=== PATIENT | female | born 1985 | race Caucasian/White ===

== ENCOUNTER → 2017-01-31 | Outpatient (CLI) | payer OTHER ==
[2017-01-31 09:25] LABS: BASO % 0.2 % (0.0-1.0); EOS % 0.7 % (0.0-3.0); LARGE UNSTAINED CELL # 0.2 K/mm3 (0.0-0.4); LARGE UNSTAINED CELL % 2.9 % (0.0-4.0); LYMPH # 1.3 K/mm3 (1.5-4.5); LYMPH % 18.1 % (24.0-44.0); MEAN CORPUSCULAR HGB CONC 35.4 g/dl (32.0-36.5); MEAN CORPUSCULAR VOLUME 87.8 fl (80.0-96.0); MONO # 0.3 K/mm3 (0.0-0.8); MONO % 3.7 % (0.0-5.0); NEUTROPHILS # 5.5 K/mm3 (1.8-7.7); NEUTROPHILS % 74.4 % (36.0-66.0); PLATELET COUNT, AUTOMATED 265 k/mm3 (150-450); RED CELL DISTRIBUTION WIDTH 13.3 % (11.5-14.5); WHITE BLOOD COUNT 7.4 K/mm3 (4.0-10.0)
[2017-02-01 08:09] LABS: CONTROL LINE INT CTR LINE PRESENT; HIV SCRN NEGATIVE (NEGATIVE); HIV SCRN1 NEGATIVE (NEGATIVE)
== END ==
LOC: M LAB 08:14
PROVIDERS: ATTEND Advanced Practice Midwife
DX: Z34.81 Encounter for supervision of other normal pregnancy, first trimester (principal); Z36 Encounter for antenatal screening of mother

== ENCOUNTER → 2017-02-02 | Outpatient (REF) | payer OTHER | LOC: M LAB REF 17:04 | PROVIDERS: ATTEND Advanced Practice Midwife | DX: Z34.81 Encounter for supervision of other normal pregnancy, first trimester (principal); Z36 Encounter for antenatal screening of mother ==

== ENCOUNTER → 2017-02-09 | Outpatient (CLI) | payer OTHER ==
--- NOTE | 2017-02-09 18:23 | REP ---
Clinical: Anatomical evaluation. Comparison: none. Findings: Examination demonstrates a single live intrauterine in cephalic presentation. motion is identified by technologist. Placenta is noted anteriorly and grade one without evidence for placenta previa or abruption. Amniotic fluid volume is normal. Cervix measures 4.5 cm in length and appears closed. Nuchal cord cannot be excluded. Gestational age by current measurements 26 weeks 2 days with MEI 05/16/2017 . FHR equals 130 beats per minute. BPD 6.7 cm 27 weeks 0 days HC 24.3 cm 26 weeks 3-day AC 21.8 cm 26 weeks 2 days FL 4.7 cm 25 weeks 5 days HL 4.4 cm 26 weeks 2 days HC/AC ratio 1.12 Estimated weight 892 grams ( 36 percentile). Anatomical assessment demonstrates normal structures including cranium, choroid plexus, cavum, cerebellum/posterior fossa, facial features, lungs, four-chamber heart/ left ventricular outflow tract, diaphragm, stomach, cord insertion/three-vessel cord, kidneys/bladder, spine, and lower extremities. Limited evaluation of the right cardiac ventricular outflow tract and upper extremities noted. Impression: Single live intrauterine in cephalic presentation. Anatomical limitations as noted above may warrant reevaluation and follow-up. Signed by Juan Chau MD 02/09/2017 06:14 P
== END ==
LOC: M RAD 17:11
PROVIDERS: ATTEND Advanced Practice Midwife
DX: Z36 Encounter for antenatal screening of mother (principal); Z3A.26 26 weeks gestation of pregnancy

== ENCOUNTER → 2017-03-02 | Outpatient (CLI) | payer OTHER ==
[2017-03-02 17:01] LABS: BASO % 0.2 % (0.0-1.0); EOS # 0.1 K/mm3 (0.0-0.50); EOS % 0.8 % (0.0-3.0); LARGE UNSTAINED CELL # 0.1 K/mm3 (0.0-0.4); LARGE UNSTAINED CELL % 1.1 % (0.0-4.0); LYMPH # 1.7 K/mm3 (1.5-4.5); LYMPH % 18.6 % (24.0-44.0); MEAN CORPUSCULAR HEMOGLOBIN 30.4 pg (27.0-33.0); MEAN CORPUSCULAR HGB CONC 33.8 g/dl (32.0-36.5); MEAN CORPUSCULAR VOLUME 90.1 fl (80.0-96.0); MONO # 0.3 K/mm3 (0.0-0.8); MONO % 3.5 % (0.0-5.0); NEUTROPHILS # 6.5 K/mm3 (1.8-7.7); NEUTROPHILS % 75.9 % (36.0-66.0); PLATELET COUNT, AUTOMATED 279 k/mm3 (150-450); RED CELL DISTRIBUTION WIDTH 13.7 % (11.5-14.5); WHITE BLOOD COUNT 8.6 K/mm3 (4.0-10.0)
== END ==
LOC: M LAB 15:02
PROVIDERS: ATTEND Advanced Practice Midwife
DX: Z34.83 Encounter for supervision of other normal pregnancy, third trimester (principal); Z36 Encounter for antenatal screening of mother

== ENCOUNTER → 2017-03-09 | Outpatient (CLI) | payer OTHER ==
--- NOTE | 2017-03-10 03:19 | REP ---
Clinical: Anatomical evaluation. Comparison: 02/09/2017 . Findings: Examination demonstrates a single live intrauterine in cephalic presentation. motion is identified by technologist. Placenta is noted anteriorly and grade zero without evidence for placenta previa or abruption. Amniotic fluid volume is normal. Cervix measures 4.2 cm in length and appears closed. No evidence for nuchal cord. Gestational age by first ultrasound 30 weeks 2 days with MEI 05/16/2017 . Gestational age by current measurements 30 weeks 1 day with MEI 05/17/2017 . FHR equals 133 beats per minute. Estimated weight 1521 grams ( 38th percentile). Anatomical assessment demonstrates normal structures including cranium, choroid plexus, cavum, cerebellum/posterior fossa, facial features, lungs, four-chamber heart/ventricular outflow tracts, diaphragm, stomach, three-vessel cord, bladder and upper extremities. Impression: Single live intrauterine in cephalic presentation demonstrating appropriate interval growth. In conjunction with prior examination anatomical assessment is complete and normal. Signed by Juan Chau MD 03/10/2017 03:10 A
== END ==
LOC: M RAD 16:43
PROVIDERS: ATTEND Advanced Practice Midwife
DX: Z34.83 Encounter for supervision of other normal pregnancy, third trimester (principal); Z36 Encounter for antenatal screening of mother; Z3A.30 30 weeks gestation of pregnancy

== ENCOUNTER → 2017-03-31 | Outpatient (CLI) | payer OTHER ==
[2017-03-31 19:22] LABS: MEAN CORPUSCULAR HEMOGLOBIN 30.7 pg (27.0-33.0); MEAN CORPUSCULAR HGB CONC 34.3 g/dl (32.0-36.5); MEAN CORPUSCULAR VOLUME 89.4 fl (80.0-96.0); RED CELL DISTRIBUTION WIDTH 13.7 % (11.5-14.5); WHITE BLOOD COUNT 9.9 K/mm3 (4.0-10.0)
[2017-03-31 20:27] LABS: ALT/SGPT 21 U/L (12-78); AST/SGOT 16 U/L (15-37); BILIRUBIN,TOTAL 0.5 MG/DL (0.2-1.0); CREATININE FOR GFR 0.43 MG/DL (0.55-1.02); GLOMERULAR FILTRATION RATE > 60.0 (>60); URIC ACID 4.2 MG/DL (2.6-6.0)
[2017-03-31 20:43] LABS: CREATININE, SERUM 0.4 MG/DL (0.6-1.0)
[2017-03-31 20:55] LABS: CREATININE CLEARANCE, URINE 182.3 ML/MIN (75-115)
== END ==
LOC: M LAB 18:23
PROVIDERS: ATTEND Advanced Practice Midwife
DX: O16.3 Unspecified maternal hypertension, third trimester (principal)

== ENCOUNTER → 2017-04-01 | Outpatient (CLI) | payer OTHER ==
--- NOTE | 2017-04-01 12:55 | REP ---
REASON FOR EXAM: Gestational hypertension. Obtain biophysical profile. Multiple sonographic images of the gravid uterus show a single living intrauterine gestation in variable positions. The subjective amniotic fluid volume is within normal limits. Doppler interrogation of the heart shows a heart rate of 136 beats per minute. Doppler interrogation of the umbilical artery shows an A/B ratio of 3.07. This is minimally above the upper limit of normal which is 3.00. The significance of that is questionable. Feta biophysical profile score is 2 for breathing, 2 for movement, 2 for tone, and 2 for amniotic fluid volume giving a sum total of 8 out of 8. The calculated amniotic fluid index is 15.8, within expected range 8.2 to 24.7. IMPRESSION: Limited OB ultrasound and biophysical profile, as described above. Signed by Teja Schafer DO 04/01/2017 02:16 P
== END ==
LOC: M RAD 09:10
PROVIDERS: ATTEND Advanced Practice Midwife
DX: O13.3 Gestational [pregnancy-induced] hypertension without significant proteinuria, third trimester (principal)

== ENCOUNTER → 2017-04-08 | Outpatient (CLI) | payer OTHER ==
--- NOTE | 2017-04-08 12:07 | REP ---
Clinical: Hypertension. Growth discrepancy . Comparison: 04/01/2017 . Findings: Examination demonstrates a single live intrauterine in cephalic presentation. motion is identified by technologist. Placenta is noted anteriorly and grade one without evidence for placenta previa or abruption. Amniotic fluid volume is normal. Cervix measures 4.5 cm in length and appears closed. Nuchal cord cannot be excluded. Gestational age by LMP 34 weeks 4 days with MEI 05/16/2017 . Gestational age by current measurements 34 weeks 0 days with MEI 05/20/2017 . FHR equals 162 beats per minute. BPD 8.5 cm 34 weeks 1 day HC 30.5 cm 34 weeks 0 days AC 30.0 cm 34 weeks 0 days FL 6.6 cm 33 weeks 5 days HL 5.9 cm 34 weeks 2 days HC/AC ratio 1.02 Estimated weight 2305 grams ( 35th percentile). Amniotic fluid index equals 23.6 cm (8.0 - 24.9). Biophysical profile score equals 8/8 Impression: 1. Single live advanced gestation in cephalic presentation demonstrating appropriate interval growth. 2. Nuchal cord cannot be excluded. 3. Biophysical profile score equals 8/8. 4. Amniotic fluid volume is upper limits of normal. Signed by Juan Chau MD 04/08/2017 11:59 A
== END ==
LOC: M RAD 10:59
PROVIDERS: ATTEND Advanced Practice Midwife
DX: O24.419 Gestational diabetes mellitus in pregnancy, unspecified control (principal)

== ENCOUNTER → 2017-04-15 | Outpatient (CLI) | payer OTHER ==
--- NOTE | 2017-04-15 11:51 | REP ---
LIMITED OBSTETRIC SONOGRAPHY: HISTORY: 35 weeks gestation. Gestational hypertension. FINDINGS: Scanning demonstrates a viable single intrauterine gestation in a cephalic lie. heart rate is recorder at 132 beats per minute. Closed cervical length measured transabdominally is 5.2 cm. Amniotic fluid is subjectively normal. An anterior placenta is seen grade 1 without evidence of previa or abruption. Biophysical profile score is 8 out of a possible 8. Amniotic fluid index is normal and 16.1 cm. The SD ratio in the umbilical cord artery by Doppler is normal at 2.79. Signed by Fidel Strickland MD 04/15/2017 02:10 P
== END ==
LOC: M RAD 10:47
PROVIDERS: ATTEND Advanced Practice Midwife
DX: O24.419 Gestational diabetes mellitus in pregnancy, unspecified control (principal)

== ENCOUNTER → 2017-04-22 | Outpatient (CLI) | payer OTHER ==
--- NOTE | 2017-04-22 21:20 | REP ---
Clinical: Gestational hypertension for biophysical profile. Comparison: 04/15/2017. Findings: Ultrasound examination demonstrates a single live advanced gestation in cephalic presentation. motion was identified by technologist. Placenta is noted anteriorly and grade 1 without evidence for placenta previa or abruption. Cervix measures 3.7 cm in length and appears closed. Gestational age by first ultrasound 36 weeks 4 days with MEI 05/16/2017. heart rate = 133 beats per minute. Amniotic fluid index= 16.7 cm (7.6 - 24.6). Biophysical profile score = 8/8. Umbilical cord SD ratio = 2.28 (1.76 - 2.76). Impression: Single live intrauterine in cephalic presentation. Biophysical profile score equals 8/8. Amniotic fluid index normal. Signed by Juan Chau MD 04/22/2017 09:12 P
== END ==
LOC: M RAD 10:58
PROVIDERS: ATTEND Advanced Practice Midwife
DX: O13.3 Gestational [pregnancy-induced] hypertension without significant proteinuria, third trimester (principal); Z3A.36 36 weeks gestation of pregnancy

== ENCOUNTER → 2017-04-29 | Outpatient (CLI) | payer OTHER ==
[~2017-04-29] MED LIST: COLA100C3 PO; IBUP800T23 PO; MOM30SS PO; OXYC1TAB23 PO; PERCOCET PO
--- NOTE | 2017-04-30 06:06 | REP ---
Clinical: well-being . Comparison: 04/22/2017 . Findings: Examination demonstrates a single live intrauterine in cephalic presentation. motion is identified by technologist. Placenta is noted anteriorly and grade II without evidence for placenta previa or abruption. Amniotic fluid volume is normal. Cervix measures 3.7 cm in length and appears closed. No evidence for nuchal cord. Gestational age by LMP 37 weeks 4 days with MEI 05/16/2017 . Gestational age by current measurements 37 weeks 2 days with MEI 05/18/2017 . FHR equals 133 beats per minute. Estimated weight 3155 grams ( 50th percentile). Biophysical profile score equals 8/8. Amniotic fluid index equals 11.7 cm (7.4 - 24.1). Umbilical cord SD ratio equals 2.44 Impression: 1. Single live advanced gestation in cephalic presentation demonstrating appropriate interval growth. 2. Biophysical profile score equals 8/8. 3. Estimated weight normal. 4. Amniotic fluid index normal. Signed by Juan Chau MD 04/30/2017 05:57 A
== END ==
LOC: M RAD 10:42
PROVIDERS: ATTEND Advanced Practice Midwife
DX: O13.9 Gestational [pregnancy-induced] hypertension without significant proteinuria, unspecified trimester (principal)

== ENCOUNTER 2017-05-01 06:28 | Inpatient (IN) | payer OTHER ==
[~2017-05-01] VITALS: Ht 165.1 cm; Wt 104.0 kg
[2017-05-01] VITALS (14 sets, daily range): BP systolic 108–150; BP diastolic 54–87
[2017-05-01] MEDS ORDERED: LACTATED RINGER'S 1000 ML IV STA (07:21)
[2017-05-01] MEDS ORDERED: LR 1,000 ML IV SCH (07:21)
[2017-05-01 08:02] LABS: MEAN CORPUSCULAR HEMOGLOBIN 30.4 pg (27.0-33.0); MEAN CORPUSCULAR HGB CONC 34.4 g/dl (32.0-36.5); MEAN CORPUSCULAR VOLUME 88.3 fl (80.0-96.0); RED CELL DISTRIBUTION WIDTH 14.2 % (11.5-14.5); WHITE BLOOD COUNT 8.2 K/mm3 (4.0-10.0)
[2017-05-01 08:17] LABS: ALT/SGPT 17 U/L (12-78); AST/SGOT 16 U/L (15-37); BILIRUBIN,TOTAL 0.4 MG/DL (0.2-1.0); CREATININE FOR GFR 0.36 MG/DL (0.55-1.02); GLOMERULAR FILTRATION RATE > 60.0 (>60); URIC ACID 4.7 MG/DL (2.6-6.0)
[2017-05-01] MEDS: miSOPROStol 50 MCG 1/2 TAB (S0191) PO SCH ×4 (08:40→20:49)
[2017-05-02] VITALS (33 sets, daily range): BP systolic 90–150; BP diastolic 53–80
[2017-05-02] MEDS: miSOPROStol 50 MCG 1/2 TAB (S0191) PO SCH (00:53)
[2017-05-02] MEDS ORDERED: miSOPROStol 100 MCG TAB (S0191) PO ONE ×2 (05:15→11:00)
[2017-05-02] MEDS ORDERED: LR 1,000 ML IV SCH (14:27)
[2017-05-02] MEDS ORDERED: OXYTOCIN DRIP 30 UNITS in APPROPRIATE DILUENT 1 EA IV SCH (14:30)
[2017-05-02 15:04] LABS: MEAN CORPUSCULAR HEMOGLOBIN 30.5 pg (27.0-33.0); MEAN CORPUSCULAR HGB CONC 34.3 g/dl (32.0-36.5); MEAN CORPUSCULAR VOLUME 88.9 fl (80.0-96.0); RED CELL DISTRIBUTION WIDTH 14.4 % (11.5-14.5); WHITE BLOOD COUNT 9.2 K/mm3 (4.0-10.0)
[2017-05-02] MEDS ORDERED: FENTANYL 2MCG/ML ROPIVACAINE 0.2% IN 0.9% NACL 200ML IVBAG As Ordered ONE (19:41)
[2017-05-02] MEDS ORDERED: ePHEDrine SULFATE 25 MG/5 ML(5MG/ML) SYRINGE As Ordered ONE ×2 (22:04→22:07)
[2017-05-02] MEDS ORDERED: FENTANYL/ROPIVACAINE/NACL BAG 200 ML EPIDURAL SCH (22:15)
[2017-05-02] MEDS ORDERED: LACTATED RINGER'S 1000 ML IV PRN (22:15)
[2017-05-02] MEDS ORDERED: NALOXONE INJ 0.4 MG/1 ML VIAL (J2310) IV PRN (22:15)
[2017-05-02] MEDS ORDERED: REFRIGERATOR IV KEYS XX PRN (22:15)
[2017-05-02] MEDS ORDERED: ONDANSETRON 4MG/2ML VIAL (J2405) IV PRN (22:15)
[2017-05-02] MEDS ORDERED: diphenhydrAMINE INJ 50MG/ML VIAL (J1200) IV PRN (22:15)
[2017-05-02] MEDS ORDERED: EPIDURAL/PCA KEYS XX PRN (22:15)
[2017-05-02] MEDS ORDERED: ePHEDrine SULFATE 25 MG/5 ML(5MG/ML) SYRINGE IV PRN (22:15)
[2017-05-02] MEDS ORDERED: EPIDURAL COMMENT XX SCH (22:15)
[2017-05-03] VITALS (11 sets, daily range): BP systolic 88–139; BP diastolic 43–67
[2017-05-03] MEDS ORDERED: ADACEL/BOOSTRIX VACCINE (DIPHTH/PERTUSS/ACELL/TETANUS)0.5ML SYR (90715) IM ONE (09:00)
[2017-05-03] MEDS ORDERED: BICITRA 30ML SOLN UDC PO ONE (12:15)
[2017-05-03] MEDS ORDERED: LIDOCAINE PRES-FREE 2% 10ML AMP As Ordered ONE ×2 (12:26→13:08)
[2017-05-03] MEDS ORDERED: OXYTOCIN INJ 10 UNITS/ML VIAL (J2590) As Ordered ONE (12:26)
[2017-05-03] MEDS ORDERED: MORPHINE PRES-FREE INJ 10 MG/10 ML VIAL (J2274) As Ordered ONE (12:27)
[2017-05-03] MEDS ORDERED: ONDANSETRON 4MG/2ML VIAL (J2405) As Ordered ONE (12:34)
[2017-05-03] MEDS ORDERED: KETOROLAC 60 MG/2 ML VIAL (J1885) As Ordered ONE (12:34)
[2017-05-03] MEDS ORDERED: MIDAZOLAM INJ 2 MG/2 ML VIAL (J2250) As Ordered ONE (13:13)
[2017-05-03] MEDS ORDERED: KETAMINE HCL 200 MG/20 ML VIAL As Ordered ONE (13:13)
[2017-05-03] MEDS ORDERED: fentaNYL 100 MCG/2 ML INJECTION (J3010) As Ordered ONE (13:21)
[2017-05-03] MEDS ORDERED: ONDANSETRON 4MG/2ML VIAL (J2405) IV PRN ×2 (13:30→14:30)
[2017-05-03] MEDS ORDERED: NALOXONE INJ 0.4 MG/1 ML VIAL (J2310) IV PRN ×2 (13:30)
[2017-05-03] MEDS ORDERED: NALBUPHINE HCL 10 MG/ML AMP (J2300) IV PRN ×2 (13:30→14:30)
[2017-05-03] MEDS ORDERED: METOCLOPRAMIDE INJ 10MG/2ML VIAL (J2765) IV PRN (13:30)
[2017-05-03] MEDS: LR 1,000 ML IV SCH ×2 (13:52→19:30)
[2017-05-03] MEDS ORDERED: DOCUSATE SODIUM 100 MG CAP PO PRN (14:00)
[2017-05-03] MEDS ORDERED: MOM 30ML SUSPENSION UDC PO PRN (14:00)
[2017-05-03] MEDS ORDERED: RHOGAM 300 MCG (1500 IU) INJ (J2790) IM SCH (14:00)
[2017-05-03] MEDS ORDERED: MEASLES,MUMPS,RUBELLA VACCINE INJ (MMR-II) (90707) SC SCH (14:00)
[2017-05-03] MEDS ORDERED: PERCOCET 5MG/325MG TAB PO PRN ×2 (14:00)
[2017-05-03] MEDS ORDERED: IBUP800T23 PO (14:01)
[2017-05-03] MEDS ORDERED: PERCOCET PO (14:04)
[2017-05-03] MEDS ORDERED: OXYTOCIN DRIP 30 UNITS in APPROPRIATE DILUENT 1 EA IV ONE (14:15)
[2017-05-03] MEDS ORDERED: MEPERIDINE INJ 25 MG/ML VIAL (J2175) IV PRN (14:30)
[2017-05-03] MEDS ORDERED: fentaNYL 100 MCG/2 ML INJECTION (J3010) IV PRN (14:30)
--- NOTE | 2017-05-03 14:39 | RO ---
DATE OF PROCEDURE: 05/03/2017 PREOPERATIVE DIAGNOSES: 1. Arrested dilatation. 2. Gestational hypertension. 3. Intrauterine at 38+ weeks. POSTOPERATIVE DIAGNOSES: 1. Arrested dilatation. 2. Gestational hypertension. 3. Intrauterine at 38+ weeks. OPERATIVE PROCEDURE: Primary low transverse section. OPERATIVE PROCEDURE: Primary low transverse section. SURGEON: Catalina Sorto MD WAVE GUIDE ASSEMBLER: Lina Brody CNM ANESTHESIA: Epidural ESTIMATED BLOOD LOSS: 500 mL URINE OUTPUT: 50 mL INTRAVENOUS FLUIDS: 600 mL of lactated Ringers solution. PREOPERATIVE ANTIBIOTICS: 2 grams of Ancef. SPECIMENS: Cord blood. OPERATIVE FINDINGS: Live born male , Apgars 8 and 9. Weight 6 pounds 11 ounces, 3044 grams. DESCRIPTION OF PROCEDURE: After informed consent was obtained and written consent was reviewed, the patient was brought to the operating room where she was prepped and draped in a normal sterile fashion. A Godfrey catheter had previously been placed and set to gravity. A time out in the operating room was then performed identifying the patient, procedure to be performed as well as drug allergies. Anesthesia was tested, deemed to be adequate. A Pfannenstiel skin incision was then made and carried down to the rectus fascia. The fascia was scored and this excision was extended bilaterally. The fascia was then dissected off the underlying rectus muscles both superiorly and inferiorly. The rectus muscles were in the midline. The peritoneum was then entered and the vesicouterine peritoneum was then identified, was tented and excised to create a bladder flap. The bladder blade was then placed to retract back the bladder. Curvilinear incision was made in the lower uterine segment. head was then brought to the level of the incision, atraumatically and was delivered with the aid of a Kiwi vacuum. The vacuum was released. Shoulders and corpus were then further delivered. Cord was clamped times two, it was cut and was taken over to the warmer with a good cry. Cord blood was obtained. Placenta was drained and delivered grossly intact. The uterus was then exteriorized and cleared of all clots of debris. The uterine incision was then closed with two layers using #0 Vicryl for first layer in a running locking fashion, followed by a second layer for imbrication in a running nonlocking fashion. A [id number] stitch was placed for hemostasis. The abdomen was then suctioned. Uterus was returned into the patient's abdomen. Surgical incision was inspected and noted to be hemostatic. The anterior peritoneum was then reapproximated with #3-0 Vicryl. The rectus muscles were reapproximated with #3-0 Vicryl, the fascia was then closed with #0 Vicryl in a running nonlocking fashion, subcutaneous tissues then irrigated and suctioned. Subcutaneous tissue was then reapproximated with #3-0 Vicryl. Several subdermal stitches were placed with #3-0 Vicryl and the skin was closed with #4-0 Monocryl in a subcuticular fashion. The incision was then cleaned and dry. Mastisol was applied above and below the incision. Steri-Strips were applied over the incision. The incision was then dressed. The patient was then taken to the recovery room in stable condition. Counts were correct and the couple have decided to name their son, Ken.
[2017-05-03] MEDS: KETOROLAC 30 MG/ML VIAL (J1885) IV SCH (18:30)
[2017-05-04] MEDS: KETOROLAC 30 MG/ML VIAL (J1885) IV SCH ×3 (00:59→13:00)
[2017-05-04 02:10] VITALS: BP 122/59
[2017-05-04 05:29] VITALS: BP 132/71
[2017-05-04] MEDS: LR 1,000 ML IV SCH (06:14)
[2017-05-04] MEDS ORDERED: LACTATED RINGER'S 1000 ML IV ONE (06:30)
[2017-05-04 07:49] LABS: MEAN CORPUSCULAR HEMOGLOBIN 30.4 pg (27.0-33.0); MEAN CORPUSCULAR HGB CONC 34.4 g/dl (32.0-36.5); MEAN CORPUSCULAR VOLUME 88.4 fl (80.0-96.0); RED CELL DISTRIBUTION WIDTH 14.4 % (11.5-14.5)
[2017-05-04] MEDS: PRENATAL VITAMIN TAB PO SCH (08:33)
[2017-05-04 10:05] VITALS: BP 126/56
[2017-05-04 14:33] VITALS: BP 137/65
[2017-05-04 18:18] VITALS: BP 134/65
[2017-05-04] MEDS: IBUPROFEN 800 MG TAB PO SCH (21:06)
[2017-05-05] MEDS: IBUPROFEN 800 MG TAB PO SCH (05:34)
[2017-05-05 05:56] VITALS: BP 134/65
[2017-05-05] MEDS: PRENATAL VITAMIN TAB PO SCH (09:00)
[2017-05-05] MEDS ORDERED: ADACEL/BOOSTRIX VACCINE (DIPHTH/PERTUSS/ACELL/TETANUS)0.5ML SYR (90715) IM ONE (10:00)
[2017-05-05] MEDS ORDERED: OXYC1TAB23 PO ×2 (10:13→10:14)
[2017-05-05] MEDS ORDERED: MOM30SS PO (10:15)
[2017-05-05] MEDS ORDERED: COLA100C3 PO (10:15)
--- NOTE | 2017-05-06 08:08 | DSES ---
DATE OF ADMISSION: 05/01/2017 DATE OF DISCHARGE: 05/05/2017 DISCHARGE DIAGNOSES: 1. Gestational hypertension. 2. Primary section for arrest of dilation. PROCEDURE PERFORMED WHILE IN THE HOSPITAL: 1. Epidural. 2. Primary low transverse section. DISCHARGE CONDITION: Stable. HISTORY AND HOSPITAL COURSE: Mrs. Duron is a 31-year-old, 1, who presented for induction of labor for gestational hypertension at 38 plus weeks. Her labor progressed. She made it to 5 cm and remained unchanged after several hours. She was consented for a primary low transverse section which was uncomplicated and productive of a live born male infant, Apgars 8 and 9. Weight was 6 pounds 11 ounces. Estimated blood loss was 500 mL. Mrs. Duron did well postoperatively. By postoperative day #2, had met all discharge criteria and was discharged home in stable condition. PHYSICAL EXAMINATION ON DATE OF DISCHARGE: Vital signs stable. She was afebrile. General Appearance: Well appearing in no acute distress. Abdomen: Soft. Appropriately tender. Fundus below umbilicus. Her incision was clean, dry and intact, well approximated with Steri-Strips, no erythema. Extremities: Negative for calf tenderness. DISCHARGE MEDICATIONS: - ibuprofen - Percocet DISCHARGE INSTRUCTIONS: 1. She was instructed to followup in two weeks. 2. To report severe pain, heavy vaginal bleeding, fever, incisional issues. 3. Remain on pelvic rest.
== END 2017-05-05 10:40 | disposition home or self-care (01) | DRG 540 ==
LOC: M LDI 06:28 → M OBS 05-03 15:54
PROVIDERS: ADMIT Obstetrics & Gynecology; ATTEND Obstetrics & Gynecology
PROC: 10D00Z1 Extraction of Products of Conception, Low, Open Approach (ICD-10-PCS; principal; 2017-05-03)
DX: O13.4 Gestational [pregnancy-induced] hypertension without significant proteinuria, complicating childbirth (principal); Z37.0 Single live birth; Z3A.38 38 weeks gestation of pregnancy; E66.9 Obesity, unspecified; O99.214 Obesity complicating childbirth; O62.0 Primary inadequate contractions

== ENCOUNTER 2017-06-17 13:23 | Inpatient (IN) | payer OTHER ==
[~2017-06-17] VITALS: Ht 165.1 cm; Wt 86.3 kg
[~2017-06-17 13:23] MED LIST changes: -COLA100C3 PO; +COLA100C5 PO; +IBUP1TAB7 PO; -IBUP800T23 PO
[2017-06-17] MEDS ORDERED: ONDANSETRON 4MG/2ML VIAL (J2405) IV ONE (13:45)
[2017-06-17] MEDS ORDERED: MORPHINE 4 MG/ML 1ML SYRINGE IV ONE ×3 (13:45→16:30)
[2017-06-17] MEDS ORDERED: NS 1,000 ML IV ONE ×2 (13:45→16:45)
[2017-06-17 14:16] LABS: BASO % 0.2 % (0.0-1.0); EOS # 0.1 K/mm3 (0.0-0.50); EOS % 0.5 % (0.0-3.0); LARGE UNSTAINED CELL # 0.1 K/mm3 (0.0-0.4); LARGE UNSTAINED CELL % 0.3 % (0.0-4.0); LYMPH # 1.5 K/mm3 (1.5-4.5); LYMPH % 8.9 % (24.0-44.0); MEAN CORPUSCULAR HEMOGLOBIN 28.1 pg (27.0-33.0); MEAN CORPUSCULAR HGB CONC 32.4 g/dl (32.0-36.5); MEAN CORPUSCULAR VOLUME 86.7 fl (80.0-96.0); MONO # 0.5 K/mm3 (0.0-0.8); NEUTROPHILS # 14.1 K/mm3 (1.8-7.7); NEUTROPHILS % 87.1 % (36.0-66.0); PLATELET COUNT, AUTOMATED 340 k/mm3 (150-450); RED CELL DISTRIBUTION WIDTH 14.3 % (11.5-14.5); WHITE BLOOD COUNT 16.2 K/mm3 (4.0-10.0)
[2017-06-17 14:30] LABS: CONTROL LINE HCG INT CTR LINE PRESENT
[2017-06-17 14:38] LABS: ALBUMIN 3.7 GM/DL (3.2-5.2); ALBUMIN/GLOBULIN RATIO 1.12 (1.00-1.93); ALKALINE PHOSPHATASE 326 U/L (45-117); ALT/SGPT 490 U/L (12-78); ANION GAP 8 MEQ/L (8-16); AST/SGOT 231 U/L (15-37); BILIRUBIN,DIRECT 3.1 MG/DL (0.0-0.2); BILIRUBIN,TOTAL 4.4 MG/DL (0.2-1.0); BLOOD UREA NITROGEN 12 MG/DL (7-18); CALCIUM LEVEL 9.1 MG/DL (8.5-10.1); CARBON DIOXIDE LEVEL 24 MEQ/L (21-32); CHLORIDE LEVEL 103 MEQ/L (98-107); CREATININE FOR GFR 0.72 MG/DL (0.55-1.02); GLOMERULAR FILTRATION RATE > 60.0 (>60); GLUCOSE, FASTING 126 MG/DL (70-105); POTASSIUM SERUM 3.4 MEQ/L (3.5-5.1); SODIUM LEVEL 135 MEQ/L (136-145)
[2017-06-17] MEDS ORDERED: ISOVUE-370 76% 100ML VIAL (Q9967) As Ordered ONE (15:04)
--- NOTE | 2017-06-17 16:22 | REP ---
CT ABDOMEN AND PELVIS WITH IV CONTRAST: TECHNIQUE: Axial contrast enhanced images from the lung bases to the pubic symphysis using 100 mL Isovue 370 intravenous contrast material with multiplanar reformations. Visualized lung bases demonstrate no definite infiltrate. The liver demonstrates two small hypodensities in the right lobe. The largest measures 1 cm in diameter. These probably represent small cysts or hemangiomas. Spleen is unremarkable as are the adrenal glands. The pancreas demonstrates diffuse ill-defined low density throughout with mild surrounding free fluid diffusely compatible with pancreatitis. There is periportal edema. There appear to be 2 cysts of the right kidney. There is no hydronephrosis. There is no significant adenopathy. There is no free air. No significant bowel wall thickening is seen. There is no pelvic mas. A tiny amount of free fluid is seen in the pelvis. Urinary bladder is mildly distended and grossly unremarkable. IMPRESSION: Findings compatible with pancreatitis. Signed by Lobito Guzman MD 06/18/2017 05:52 P
--- NOTE | 2017-06-17 16:43 | REP ---
Abdominal right upper quadrant ultrasound: The visualized portion of the pancreatic head appears enlarged. The body and tail are obscured by bowel gas. The gallbladder is distended. There are multiple gallbladder calculi . There is gallbladder wall thickening measuring up to 4 mm. No pericholecystic fluid. This raises the possibility of gallbladder wall edema and acute cholecystitis. There is no right renal hydronephrosis, calculus, mass or cyst. Right kidney is normal size 11.3 cm craniocaudad length. Impression: Pancreatic head appears enlarged. This is nonspecific and could represent inflammation or tumor. The body and tail are obscured by bowel gas. There is cholelithiasis. There is gallbladder distension and gallbladder wall thickening. This may represent acute cholecystitis. There is no pericholecystic fluid. No right renal hydronephrosis, calculus, mass or cyst. Signed by Lobito Escoto MD 06/17/2017 04:34 P
[2017-06-17] MEDS ORDERED: PIPERACILLIN/TAZOBACTAM SOD 3.375 GM in D5W MINI-BAG PLUS 50 ML IV ONE (16:45)
[2017-06-17] MEDS ORDERED: HYDROmorphone HCL 1 MG/ML SYRINGE (J1170) IV PRN (17:00)
[2017-06-17] MEDS ORDERED: NS 1,000 ML IV SCH (17:34)
[2017-06-17] MEDS ORDERED: KCL 40MEQ in NS 1000ML 1,000 ML IV SCH (17:34)
[2017-06-17] MEDS ORDERED: NALOXONE INJ 0.4 MG/1 ML VIAL (J2310) IV PRN (17:45)
[2017-06-17] MEDS ORDERED: IPRATROPIUM 0.5MG/ALBUTEROL 2.5MG INH SOL UD 3ML (DUONEB)(J7620) NEB PRN (17:45)
[2017-06-17] MEDS ORDERED: EPIDURAL/PCA KEYS XX PRN (17:45)
[2017-06-17] MEDS ORDERED: diphenhydrAMINE INJ 50MG/ML VIAL (J1200) IV PRN (17:45)
[2017-06-17] MEDS ORDERED: METOCLOPRAMIDE INJ 10MG/2ML VIAL (J2765) IV PRN (17:45)
[2017-06-17] MEDS ORDERED: ONDANSETRON 4MG/2ML VIAL (J2405) IV PRN (17:45)
[2017-06-17] MEDS ORDERED: NALBUPHINE HCL 10 MG/ML AMP (J2300) IV PRN (17:45)
[2017-06-17 18:45] VITALS: BP 194/77
[2017-06-17] MEDS: MORPHINE 1MG/ML IN 0.9% NACL 100ML IV BAG IV PRN (19:27)
[2017-06-17 19:45] VITALS: BP 160/72
[2017-06-17] MEDS: IPRATROPIUM 0.5MG/ALBUTEROL 2.5MG INH SOL UD 3ML (DUONEB)(J7620) NEB SCH (20:00)
[2017-06-17 20:15] VITALS: BP 179/76
[2017-06-17] MEDS: KCL 40MEQ in NS 1000ML 1,000 ML IV SCH (21:08)
[2017-06-17] MEDS: PANTOPRAZOLE 40MG INJ (PROTONIX) (C9113) IV SCH (21:08)
[2017-06-17 21:15] VITALS: BP 150/73
[2017-06-17 22:15] VITALS: BP 151/73
[2017-06-17 23:15] VITALS: BP 143/67
[2017-06-17] MEDS: PIPERACILLIN/TAZOBACTAM SOD 3.375 GM in D5W MINI-BAG PLUS 50 ML IV SCH (23:36)
[2017-06-18 00:15] VITALS: BP 147/82
[2017-06-18] MEDS: PROMETHAZINE INJ 25 MG/ML VIAL (J2550) IV PRN ×2 (01:36→18:45)
[2017-06-18] MEDS: IPRATROPIUM 0.5MG/ALBUTEROL 2.5MG INH SOL UD 3ML (DUONEB)(J7620) NEB SCH ×4 (02:00→20:12)
[2017-06-18 04:00] VITALS: BP 137/83
[2017-06-18] MEDS: KCL 40MEQ in NS 1000ML 1,000 ML IV SCH ×3 (04:46→20:37)
[2017-06-18] MEDS: PIPERACILLIN/TAZOBACTAM SOD 3.375 GM in D5W MINI-BAG PLUS 50 ML IV SCH ×3 (05:50→15:57)
[2017-06-18 06:44] LABS: MEAN CORPUSCULAR HEMOGLOBIN 28.3 pg (27.0-33.0); MEAN CORPUSCULAR HGB CONC 32.4 g/dl (32.0-36.5); MEAN CORPUSCULAR VOLUME 87.4 fl (80.0-96.0); RED CELL DISTRIBUTION WIDTH 14.3 % (11.5-14.5); WHITE BLOOD COUNT 11.1 K/mm3 (4.0-10.0)
[2017-06-18 06:59] LABS: ALBUMIN 3.1 GM/DL (3.2-5.2); ALBUMIN/GLOBULIN RATIO 1.19 (1.00-1.93); ALKALINE PHOSPHATASE 259 U/L (45-117); ALT/SGPT 314 U/L (12-78); ANION GAP 9 MEQ/L (8-16); AST/SGOT 82 U/L (15-37); BILIRUBIN,TOTAL 1.4 MG/DL (0.2-1.0); BLOOD UREA NITROGEN 10 MG/DL (7-18); CALCIUM LEVEL 8.3 MG/DL (8.5-10.1); CARBON DIOXIDE LEVEL 22 MEQ/L (21-32); CHLORIDE LEVEL 106 MEQ/L (98-107); CREATININE FOR GFR 0.53 MG/DL (0.55-1.02); GLOMERULAR FILTRATION RATE > 60.0 (>60); GLUCOSE, FASTING 101 MG/DL (70-105); SODIUM LEVEL 137 MEQ/L (136-145); TOTAL PROTEIN 5.7 GM/DL (6.4-8.2)
[2017-06-18 08:00] VITALS: BP 150/71
[2017-06-18 12:00] VITALS: BP 136/95
[2017-06-18 16:00] VITALS: BP 132/61
--- NOTE | 2017-06-18 19:07 | ECGEPIP ---
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
[2017-06-18 20:00] VITALS: BP 175/84
[2017-06-18] MEDS: PANTOPRAZOLE 40MG INJ (PROTONIX) (C9113) IV SCH (20:36)
--- NOTE | 2017-06-18 21:19 | IPN ---
DATE: 06/18/2017 The patient has had significant improvement of her abdominal pain overnight without nausea, without vomiting. No fevers. No chills. Overall has had good urine output. Her white count has dropped this morning from 16 to 11, and her lipase is down to 9000, and all of her liver function tests (LFTs) have diminished as well. She is feeling less abdominal pain than she had last night but still uncomfortable with movement and activity as well as palpation. PHYSICAL EXAMINATION: LUNGS: Still diminished at bases bilaterally. HEART: Regular. ABDOMEN; Less distended than she was last night with tenderness throughout the upper abdomen, less than it was last night but still with guarding without rebound. No significant peritoneal signs appreciated. IMPRESSION AND PLAN: The patient has gallstone pancreatitis and seems to be resolving this. I anticipate this is improvement of/a passed stone. At this point will keep her nothing by mouth, intravenous (IV) fluids, and will see how she does over the ensuing 24-48 hours. Possibly start her on some clear liquids tomorrow if she continues to have some significant improvement, and then progress her to a low-fat diet. Will plan on outpatient laparoscopic cholecystectomy in the near future.
--- NOTE | 2017-06-18 21:19 | HPE ---
DATE OF ADMISSION: 06/17/2017 CHIEF COMPLAINT: Gallstone pancreatitis. HISTORY OF PRESENT ILLNESS: The patient is a 31-year-old female who is 1 month who approximately 1 week after her delivery / section, she started having intermittent abdominal pain in the right upper quadrant radiating into her back. She notes this was after eating fatty foods and she had been doing relatively well until 3 days prior to admission when she had intense pain that was in the mid epigastric area radiating to her back, radiating up into the right upper quadrant. She did not have any fevers, no chills. No acholic stools. No bilirubinuria, although she did complain of some very dark yellow urine. She presented to the emergency room with severe abdominal pain in the upper abdomen, was given medication which helped provide some pain relief and underwent laboratory evaluation which revealed an elevated white count of 16,000 and an amylase of 79,515 with elevated liver function tests as well. On imaging she had a significant amount of peripancreatic fluid, some fluid that was in the paracolic gutters, around the pancreatic, gallstones were not appreciated on the CT scan but she had a gallbladder ultrasound that showed multiple small gallstones. PAST MEDICAL HISTORY: Significant for history of sections. MEDICATIONS: None. ALLERGIES: None. PHYSICAL EXAMINATION: Reveals a 31-year-old female who looks stated age. HEENT is unremarkable. Neck supple without adenopathy. Lungs are clear to auscultation without crackles, wheezes or rhonchi, although they are diminished at the bases bilaterally. Heart is regular. Abdomen is distended, tender throughout the upper abdomen and it extends even to the mid epigastric area down to the midabdomen and periumbilical area. Extremities are warm and well-perfused. IMPRESSION AND PLAN: The patient has evidence of gallstone pancreatitis. At this point she states that her abdominal pain is substantially improved since her admission to the emergency room and thus it is possible that she has passed her gallstone already, although followup labs we will obtain in the morning will see how she is doing with this. Will give her supportive care with IV fluids. IV antibiotics at this point is not unreasonable given her elevated white count, although at this point we do not see any significant evidence of peripancreatic necrosis. Will keep her nothing by mouth and watch her fluid output and obtain followup labs in the morning.
[2017-06-19] VITALS: BP 176/85
[2017-06-19] MEDS: PIPERACILLIN/TAZOBACTAM SOD 3.375 GM in D5W MINI-BAG PLUS 50 ML IV SCH ×4 (00:01→17:38)
[2017-06-19 04:00] VITALS: BP 148/97
[2017-06-19] MEDS: KCL 40MEQ in NS 1000ML 1,000 ML IV SCH ×2 (05:20→05:26)
[2017-06-19 06:55] LABS: MEAN CORPUSCULAR HEMOGLOBIN 28.4 pg (27.0-33.0); MEAN CORPUSCULAR HGB CONC 31.9 g/dl (32.0-36.5); MEAN CORPUSCULAR VOLUME 89.1 fl (80.0-96.0); RED CELL DISTRIBUTION WIDTH 14.5 % (11.5-14.5); WHITE BLOOD COUNT 10.6 K/mm3 (4.0-10.0)
[2017-06-19 07:11] LABS: ALBUMIN 2.7 GM/DL (3.2-5.2); ALBUMIN/GLOBULIN RATIO 0.82 (1.00-1.93); ALKALINE PHOSPHATASE 189 U/L (45-117); ALT/SGPT 181 U/L (12-78); ANION GAP 10 MEQ/L (8-16); AST/SGOT 31 U/L (15-37); BILIRUBIN,TOTAL 1.5 MG/DL (0.2-1.0); BLOOD UREA NITROGEN 8 MG/DL (7-18); CALCIUM LEVEL 8.6 MG/DL (8.5-10.1); CARBON DIOXIDE LEVEL 24 MEQ/L (21-32); CHLORIDE LEVEL 104 MEQ/L (98-107); CREATININE FOR GFR 0.56 MG/DL (0.55-1.02); GLOMERULAR FILTRATION RATE > 60.0 (>60); GLUCOSE, FASTING 79 MG/DL (70-105); POTASSIUM SERUM 4.5 MEQ/L (3.5-5.1); SODIUM LEVEL 138 MEQ/L (136-145)
[2017-06-19] MEDS: IPRATROPIUM 0.5MG/ALBUTEROL 2.5MG INH SOL UD 3ML (DUONEB)(J7620) NEB SCH ×3 (07:26→19:37)
[2017-06-19 08:00] VITALS: BP 133/61
[2017-06-19] MEDS: MORPHINE 1MG/ML IN 0.9% NACL 100ML IV BAG IV PRN (09:03)
[2017-06-19 12:00] VITALS: BP 149/70
[2017-06-19 16:00] VITALS: BP 144/79
[2017-06-19 20:00] VITALS: BP 158/82
[2017-06-19] MEDS: PANTOPRAZOLE 40MG INJ (PROTONIX) (C9113) IV SCH (20:39)
[2017-06-20] VITALS: BP 135/75
[2017-06-20] MEDS: PIPERACILLIN/TAZOBACTAM SOD 3.375 GM in D5W MINI-BAG PLUS 50 ML IV SCH ×5 (00:15→23:07)
[2017-06-20] MEDS: IPRATROPIUM 0.5MG/ALBUTEROL 2.5MG INH SOL UD 3ML (DUONEB)(J7620) NEB SCH ×4 (01:33→19:20)
[2017-06-20 06:16] LABS: MEAN CORPUSCULAR HEMOGLOBIN 28.7 pg (27.0-33.0); MEAN CORPUSCULAR HGB CONC 33.2 g/dl (32.0-36.5); MEAN CORPUSCULAR VOLUME 86.3 fl (80.0-96.0); RED CELL DISTRIBUTION WIDTH 14.4 % (11.5-14.5); WHITE BLOOD COUNT 9.2 K/mm3 (4.0-10.0)
[2017-06-20 06:34] LABS: ALBUMIN 2.5 GM/DL (3.2-5.2); ALBUMIN/GLOBULIN RATIO 0.74 (1.00-1.93); ALKALINE PHOSPHATASE 143 U/L (45-117); ALT/SGPT 120 U/L (12-78); ANION GAP 8 MEQ/L (8-16); AST/SGOT 20 U/L (15-37); BILIRUBIN,TOTAL 1.1 MG/DL (0.2-1.0); BLOOD UREA NITROGEN 9 MG/DL (7-18); CALCIUM LEVEL 8.4 MG/DL (8.5-10.1); CARBON DIOXIDE LEVEL 27 MEQ/L (21-32); CHLORIDE LEVEL 100 MEQ/L (98-107); CREATININE FOR GFR 0.39 MG/DL (0.55-1.02); GLOMERULAR FILTRATION RATE > 60.0 (>60); GLUCOSE, FASTING 70 MG/DL (70-105); SODIUM LEVEL 135 MEQ/L (136-145); TOTAL PROTEIN 5.9 GM/DL (6.4-8.2)
[2017-06-20 08:00] VITALS: BP 145/77
[2017-06-20] MEDS: KCL 40MEQ in NS 1000ML 1,000 ML IV SCH (09:02)
[2017-06-20] MEDS ORDERED: ACETAMINOPHEN 325 MG TAB PO PRN (09:45)
[2017-06-20] MEDS: ACETAMINOPHEN TAB 650MG DOSE (2X325MG) PO PRN ×2 (10:01→18:13)
[2017-06-20] MEDS: ONDANSETRON 4MG/2ML VIAL (J2405) IV PRN ×2 (10:58→18:12)
[2017-06-20 12:00] VITALS: BP 138/86
[2017-06-20 16:30] VITALS: BP 136/73
[2017-06-20 20:00] VITALS: BP 132/61
[2017-06-20] MEDS: MORPHINE 1MG/ML IN 0.9% NACL 100ML IV BAG IV PRN (23:08)
[2017-06-20 23:46] VITALS: BP 128/66
[2017-06-21 04:30] VITALS: BP 134/70
[2017-06-21] MEDS: KCL 40MEQ in NS 1000ML 1,000 ML IV SCH (04:50)
[2017-06-21] MEDS: PIPERACILLIN/TAZOBACTAM SOD 3.375 GM in D5W MINI-BAG PLUS 50 ML IV SCH ×4 (04:50→23:11)
[2017-06-21] MEDS: IPRATROPIUM 0.5MG/ALBUTEROL 2.5MG INH SOL UD 3ML (DUONEB)(J7620) NEB SCH ×3 (07:43→19:37)
[2017-06-21 08:00] VITALS: BP 126/64
[2017-06-21] MEDS: PANTOPRAZOLE 40MG TAB (PROTONIX) PO SCH (09:08)
[2017-06-21 12:00] VITALS: BP 135/64
[2017-06-21] MEDS ORDERED: KETOROLAC 30 MG/ML VIAL (J1885) IV PRN (13:00)
[2017-06-21] MEDS ORDERED: NORCO, ANEXSIA 5/325MG TABLET (HYDROcodone/ACETAMINOPHEN) PO PRN (13:00)
[2017-06-21 16:00] VITALS: BP 130/62
[2017-06-21 20:35] VITALS: BP 137/84
[2017-06-21 23:12] VITALS: BP 114/56
[2017-06-22] MEDS: IPRATROPIUM 0.5MG/ALBUTEROL 2.5MG INH SOL UD 3ML (DUONEB)(J7620) NEB SCH ×2 (01:04→07:59)
[2017-06-22 04:00] VITALS: BP 120/55
[2017-06-22] MEDS: PIPERACILLIN/TAZOBACTAM SOD 3.375 GM in D5W MINI-BAG PLUS 50 ML IV SCH (04:57)
[2017-06-22 06:09] LABS: MEAN CORPUSCULAR HEMOGLOBIN 28.7 pg (27.0-33.0); MEAN CORPUSCULAR HGB CONC 33.5 g/dl (32.0-36.5); MEAN CORPUSCULAR VOLUME 85.4 fl (80.0-96.0); RED CELL DISTRIBUTION WIDTH 14.2 % (11.5-14.5); WHITE BLOOD COUNT 5.3 K/mm3 (4.0-10.0)
[2017-06-22 06:29] LABS: ALBUMIN 2.4 GM/DL (3.2-5.2); ALBUMIN/GLOBULIN RATIO 0.77 (1.00-1.93); ALKALINE PHOSPHATASE 117 U/L (45-117); ALT/SGPT 65 U/L (12-78); ANION GAP 9 MEQ/L (8-16); AST/SGOT 13 U/L (15-37); BILIRUBIN,TOTAL 0.6 MG/DL (0.2-1.0); BLOOD UREA NITROGEN 12 MG/DL (7-18); CALCIUM LEVEL 8.6 MG/DL (8.5-10.1); CARBON DIOXIDE LEVEL 30 MEQ/L (21-32); CHLORIDE LEVEL 101 MEQ/L (98-107); CREATININE FOR GFR 0.43 MG/DL (0.55-1.02); GLOMERULAR FILTRATION RATE > 60.0 (>60); GLUCOSE, FASTING 96 MG/DL (70-105); POTASSIUM SERUM 3.5 MEQ/L (3.5-5.1); SODIUM LEVEL 140 MEQ/L (136-145); TOTAL PROTEIN 5.5 GM/DL (6.4-8.2)
[2017-06-22 08:00] VITALS: BP 143/88
[2017-06-22] MEDS: PANTOPRAZOLE 40MG TAB (PROTONIX) PO SCH (09:26)
--- NOTE | 2017-06-28 19:12 | DSES ---
DATE OF ADMISSION: 06/17/2017 DATE OF DISCHARGE: 06/22/2017 PRINCIPAL DIAGNOSIS: Gallstone pancreatitis. ASSOCIATED DIAGNOSIS: Recent / delivery. HISTORY OF PRESENT ILLNESS: The patient is a 31-year-old female who is 1 month who approximately 1 week after delivery / section, she started having intermittent abdominal pain in the right upper quadrant. This progressed and developed severe abdominal pain. Presented to the emergency room with a white count of 16,000 and an amylase of 79,000 as well as elevated liver function tests. HOSPITAL COURSE SUMMARY: The patient was admitted with the above diagnosis, had some significant improvement of her abdominal pain and discomfort over the next 24-48 hours and eventually was started on a clear liquid diet and was discharged home on 06/22/2017, tolerating a lowfat diet. She was instructed to take some Tylenol or ibuprofen for discomfort as necessary. Followup with myself in 1 week for planned laparoscopic cholecystectomy as an outpatient in the near future. Overall she seems to be doing well at the time of discharge and was instructed to stay on a lowfat diet to avoid any recurrence of the pancreatitis.
[2017-07-21] MEDS ORDERED: TYLE325T5 PO (08:16)
== END 2017-06-22 11:30 | disposition home or self-care (01) | DRG 561 ==
LOC: M ED 13:23 → M ED INP 17:34 → M PED 18:52
PROVIDERS: ADMIT Surgery; ATTEND Surgery
DX: O26.63 Liver and biliary tract disorders in the puerperium (principal); K85.10 Biliary acute pancreatitis without necrosis or infection; O99.63 Diseases of the digestive system complicating the puerperium

== ENCOUNTER 2017-07-28 08:51 | Day surgery (SDC) | payer OTHER ==
[~2017-07-28] VITALS: Ht 165.1 cm; Wt 0.5 kg
[~2017-07-28 08:51] MED LIST changes: +TYLE325T5 PO
[2017-07-28] MEDS ORDERED: LR 1,000 ML IV SCH ×3 (09:00→12:15)
[2017-07-28] MEDS ORDERED: ceFAZolin SOD 1 GM in D5W MINI-BAG PLUS 50 ML IV ONE (09:15)
[2017-07-28 09:40] LABS: CONTROL LINE UCG INT CTR LINE PRESENT
[2017-07-28] MEDS ORDERED: ONDANSETRON 4MG/2ML VIAL (J2405) As Ordered ONE (09:52)
[2017-07-28] MEDS ORDERED: dexameTHASONE 4 MG/ML 1ML VIAL (J1100) As Ordered ONE (09:52)
[2017-07-28] MEDS ORDERED: PROPOFOL 200 MG/20 ML VIAL As Ordered ONE (09:52)
[2017-07-28] MEDS ORDERED: ROCURONIUM BROMIDE 50 MG/5 ML VIAL/SYRINGE As Ordered ONE ×2 (09:52→11:31)
[2017-07-28] MEDS ORDERED: MIDAZOLAM INJ 2 MG/2 ML VIAL (J2250) As Ordered ONE (09:53)
[2017-07-28] MEDS ORDERED: fentaNYL 100 MCG/2 ML INJECTION (J3010) As Ordered ONE (09:53)
[2017-07-28] MEDS ORDERED: BUPIVACAINE/EPIN 0.25% 30 ML VIAL As Ordered ONE (10:43)
[2017-07-28] MEDS ORDERED: SUGAMMADEX SODIUM 500 MG/5 ML VIAL (BRIDION) As Ordered ONE (11:37)
[2017-07-28] MEDS ORDERED: KETOROLAC 30 MG/ML VIAL (J1885) IV SCH (12:00)
[2017-07-28] MEDS ORDERED: fentaNYL 100 MCG/2 ML INJECTION (J3010) IV PRN (12:15)
[2017-07-28] MEDS ORDERED: MORPHINE 2 MG/ML 1ML SYRINGE IV PRN (12:15)
[2017-07-28] MEDS ORDERED: NORCO, ANEXSIA 5/325MG TABLET (HYDROcodone/ACETAMINOPHEN) PO PRN (12:15)
[2017-07-28] MEDS ORDERED: PERCOCET 5MG/325MG TAB PO PRN (12:15)
[2017-07-28] MEDS ORDERED: ONDANSETRON 4MG/2ML VIAL (J2405) IV PRN ×2 (12:15)
--- NOTE | 2017-07-28 12:28 | RO ---
DATE OF PROCEDURE: 07/28/2017 PREOPERATIVE DIAGNOSIS: Symptomatic gallstones (gallstone pancreatitis). POSTOPERATIVE DIAGNOSIS: Symptomatic gallstones (gallstone pancreatitis). PROCEDURE: Laparoscopic cholecystectomy. SURGEON: Dr. Alfredo Harrington ANESTHESIA: General endotracheal anesthesia. ESTIMATED BLOOD LOSS: Minimal. FLUIDS: Crystalloid. BRIEF PROCEDURE SUMMARY: The patient was brought to the operating room and was given general anesthesia. After adequate anesthesia and preoperative antibiotics were given, the patient was prepped and draped in the usual sterile fashion. Next. a supraumbilical incision was made with a skin knife. Blunt dissection was carried down to fascia. Fascia was grasped with Zhao clamps, elevated and a Veress needle placed into the abdominal cavity and insufflated to 15 mm of pressure. A dilating 10 mm trocar was placed at this time and under direct visualization an epigastric and two lateral trocars were placed. Next, the gallbladder was retracted superiorly after the patient was placed in reverse Trendelenburg, left side down position, and the gallbladder was cleared of peritoneum overlying the neck of the gallbladder. The cystic artery was well visualized. It was going up onto the gallbladder itself and this was clipped proximally and distally and transected. The distal portion of the gallbladder itself was quite long and elongated and thus a long window behind the neck of the gallbladder was created to make sure there was no branching coming off. The common bile duct could be seen medially and it was apparent that the gallbladder was a long gallbladder that had over time developed. The peritoneum was cleared off the neck of the gallbladder circumferentially and this was followed distally for quite a distance until it tapered quite nicely. When it tapered quite nicely to the cystic duct itself, clips were placed on the cystic duct/gallbladder junction and then on the neck of the gallbladder itself and transected. The gallbladder was taken from the gallbladder bed using electrocautery. It was placed in an EndoCatch bag and brought out through the umbilicus. The right upper quadrant was copiously irrigated till clear. The clips were intact, the operative site clean and dry and all trocars were removed under direct visualization. The incision at the umbilicus was closed with #0 Vicryl in the fascial layer and all incisions were closed with #4-0 Vicryl. Steri-Strips and a dry sterile dressing was applied. The patient was awakened, extubated and brought to the recovery room awake, alert and hemodynamically stable.
[2017-07-28 13:25] VITALS: BP 140/71
== END 2017-07-28 13:45 | disposition home or self-care (01) ==
LOC: M SDC 08:51
PROVIDERS: ATTEND Surgery
DX: K80.20 Calculus of gallbladder without cholecystitis without obstruction (principal); I10 Essential (primary) hypertension

== ENCOUNTER → 2017-08-07 | Outpatient (CLI) | payer OTHER ==
[~2017-08-07] MED LIST changes: +MICR1TAB16 PO
[2017-08-07 17:45] LABS: ALBUMIN 3.6 GM/DL (3.2-5.2); ALBUMIN/GLOBULIN RATIO 1.24 (1.00-1.93); ALKALINE PHOSPHATASE 125 U/L (45-117); ALT/SGPT 336 U/L (12-78); AMYLASE 50 U/L (25-115); ANION GAP 8 MEQ/L (8-16); AST/SGOT 632 U/L (15-37); BILIRUBIN,TOTAL 1.3 MG/DL (0.2-1.0); BLOOD UREA NITROGEN 12 MG/DL (7-18); CALCIUM LEVEL 8.8 MG/DL (8.5-10.1); CARBON DIOXIDE LEVEL 28 MEQ/L (21-32); CHLORIDE LEVEL 107 MEQ/L (98-107); GLOMERULAR FILTRATION RATE > 60.0 (>60); GLUCOSE, FASTING 85 MG/DL (70-105); SODIUM LEVEL 143 MEQ/L (136-145); TOTAL PROTEIN 6.5 GM/DL (6.4-8.2)
== END ==
LOC: M LAB 15:15
PROVIDERS: ATTEND Surgery
DX: K85.10 Biliary acute pancreatitis without necrosis or infection (principal)

== ENCOUNTER → 2017-08-10 | Outpatient (CLI) | payer OTHER ==
[2017-08-10 11:12] LABS: BLOOD UREA NITROGEN 16 MG/DL (7-18); CARBON DIOXIDE LEVEL 27 MEQ/L (21-32); CHLORIDE LEVEL 104 MEQ/L (98-107); CREATININE FOR GFR 0.51 MG/DL (0.55-1.02); GLOMERULAR FILTRATION RATE > 60.0 (>60); GLUCOSE, FASTING 77 MG/DL (70-105); POTASSIUM SERUM 4.2 MEQ/L (3.5-5.1); SODIUM LEVEL 138 MEQ/L (136-145)
[2017-08-10 11:13] LABS: ALBUMIN/GLOBULIN RATIO 1.43 (1.00-1.93); ALKALINE PHOSPHATASE 261 U/L (45-117); ALT/SGPT 350 U/L (12-78); AMYLASE 56 U/L (25-115); ANION GAP 7 MEQ/L (8-16); AST/SGOT 132 U/L (15-37); BILIRUBIN,TOTAL 4.1 MG/DL (0.2-1.0); CALCIUM LEVEL 9.1 MG/DL (8.5-10.1); TOTAL PROTEIN 6.8 GM/DL (6.4-8.2)
== END ==
LOC: M LAB 09:51
PROVIDERS: ATTEND Surgery
DX: K80.20 Calculus of gallbladder without cholecystitis without obstruction (principal); K85.10 Biliary acute pancreatitis without necrosis or infection

== ENCOUNTER 2017-08-14 10:17 | Inpatient (IN) | payer OTHER ==
[~2017-08-14] VITALS: Ht 165.1 cm; Wt 90.3 kg
[2017-08-14] VITALS (7 sets, daily range): BP systolic 145–171; BP diastolic 68–89
[2017-08-14] MEDS: PANTOPRAZOLE 40MG INJ (PROTONIX) (C9113) IV SCH (09:00)
[~2017-08-14 10:17] MED LIST changes: -MICR1TAB16 PO
[2017-08-14 11:09] LABS: CONTROL LINE UCG INT CTR LINE PRESENT
[2017-08-14 11:13] LABS: BASO % 0.3 % (0.0-1.0); EOS # 0.1 K/mm3 (0.0-0.50); EOS % 0.8 % (0.0-3.0); LARGE UNSTAINED CELL # 0.1 K/mm3 (0.0-0.4); LARGE UNSTAINED CELL % 0.7 % (0.0-4.0); LYMPH # 0.7 K/mm3 (1.5-4.5); LYMPH % 7.4 % (24.0-44.0); MEAN CORPUSCULAR HGB CONC 33.4 g/dl (32.0-36.5); MEAN CORPUSCULAR VOLUME 86.8 fl (80.0-96.0); MONO # 0.3 K/mm3 (0.0-0.8); MONO % 3.9 % (0.0-5.0); NEUTROPHILS # 7.6 K/mm3 (1.8-7.7); PLATELET COUNT, AUTOMATED 316 k/mm3 (150-450); RED CELL DISTRIBUTION WIDTH 14.2 % (11.5-14.5); WHITE BLOOD COUNT 8.8 K/mm3 (4.0-10.0)
[2017-08-14 11:15] LABS: INR 0.84
[2017-08-14] MEDS ORDERED: MICR1TAB16 PO (11:22)
[2017-08-14 11:39] LABS: ALBUMIN/GLOBULIN RATIO 1.11 (1.00-1.93); ALKALINE PHOSPHATASE 342 U/L (45-117); ALT/SGPT 238 U/L (12-78); ANION GAP 6 MEQ/L (8-16); AST/SGOT 151 U/L (15-37); BILIRUBIN,TOTAL 4.8 MG/DL (0.2-1.0); BLOOD UREA NITROGEN 12 MG/DL (7-18); CALCIUM LEVEL 9.5 MG/DL (8.5-10.1); CARBON DIOXIDE LEVEL 28 MEQ/L (21-32); CHLORIDE LEVEL 103 MEQ/L (98-107); CREATININE FOR GFR 0.56 MG/DL (0.55-1.02); GLOMERULAR FILTRATION RATE > 60.0 (>60); GLUCOSE, FASTING 104 MG/DL (70-105); POTASSIUM SERUM 3.7 MEQ/L (3.5-5.1); SODIUM LEVEL 137 MEQ/L (136-145); TOTAL PROTEIN 7.6 GM/DL (6.4-8.2)
[2017-08-14 11:56] LABS: AMYLASE 2261 U/L (25-115)
[2017-08-14] MEDS ORDERED: MORPHINE 4 MG/ML 1ML SYRINGE IV ONE (12:15)
[2017-08-14] MEDS ORDERED: ONDANSETRON 4MG/2ML VIAL (J2405) IV ONE (12:15)
[2017-08-14] MEDS ORDERED: ONDANSETRON 4MG/2ML VIAL (J2405) IV PRN ×2 (12:30→15:45)
[2017-08-14] MEDS ORDERED: PERCOCET 5MG/325MG TAB PO PRN ×3 (12:30→15:45)
[2017-08-14] MEDS ORDERED: KETOROLAC 30 MG/ML VIAL (J1885) IV PRN (12:30)
[2017-08-14] MEDS ORDERED: MORPHINE 2 MG/ML 1ML SYRINGE IV PRN (12:30)
--- NOTE | 2017-08-14 13:23 | HPE ---
DATE OF ADMISSION: 08/14/2017 Primary care physician is Jennie Rahman. General surgeon, Dr. Alfredo Harrington. Supervisor [employer], Dr. Tim Molina. Hospitalist: Dr. Chu CHIEF COMPLAINT: Epigastric right upper quadrant abdominal pain. HISTORY OF PRESENT ILLNESS: This is a 31-year-old female with history of gestational hypertension, (C) section for arrest of dilation, status post low transverse C section on 05/05/2017, recently admitted to Dr. Alfredo Harrington, General Surgeon, in May 2017, for gallstone pancreatitis, status post laparoscopic cholecystectomy 2 weeks ago, developed worsening abdominal pain with no chills, fevers, nausea or vomiting. Referred to Dr. Tim Molina for retained common bile duct stone. Patient was seen in the emergency room, minor treatment, today. She was afebrile. Lipase level was 37,000 with total bilirubin of 4.8. Hospitalist service was called for admission for obstructive jaundice status post laparoscopic cholecystectomy for retained common bile duct stone. Patient is planned for endoscopic retrograde cholangiopancreatography (ERCP) with Dr. Molina at 4:30 this afternoon. Patient admits to having some weight loss post delivery with decrease in appetite due to increasing epigastric and right upper quadrant abdominal pain. She has had no diarrhea or constipation. Has no joint pains, muscles aches, headaches, changes in vision, rhinorrhea, sore throat, nausea, vomiting, chest pain, pressure or tightness, or shortness of breath. Denies any worsening lower extremity edema, muscle weakness, depression or anxiety. PAST MEDICAL HISTORY: 1. C section. 2. Gallstone pancreatitis. PAST SURGICAL HISTORY: C section and laparoscopic cholecystectomy 2 weeks ago. ALLERGIES: NO KNOWN DRUG ALLERGIES. HOME MEDICATIONS: - Microgestin iron one tablet daily SOCIAL HISTORY: Denies cigarette or alcohol use. No recreational drug use. FAMILY HISTORY: Mother, unknown medical problems. Father in his 50s with hypertension. ASSESSMENT AND PLAN: This is a 31-year-old female with a history of gallstone pancreatitis who is status post laparoscopic cholecystectomy 2 weeks ago presents with probable common bile duct stone for ERCP today. IMPRESSION: 1. Gallstone pancreatitis with retained stone status laparoscopic cholecystectomy. ERCP with possible sphincterotomy sweeping for biliary sludging versus gallstones. Dr. Molina has been consulted. Nothing by mouth status. Intravenous (IV) fluids. Monitor in progressive care unit (PCU) for now. Supplement electrolytes. 2. History of gestational hypertension, resolved. 3. Deep venous thrombosis (DVT) prophylaxis with compression stockings. AMITA
[2017-08-14 13:44] LABS: GAMMA GLUTAMYLTRANSPEPTIDASE 367 U/L (5-55)
[2017-08-14] MEDS: NS 1,000 ML IV SCH ×4 (13:56→21:00)
[2017-08-14] MEDS ORDERED: ISOVUE-300 61% 50ML VIAL (Q9967) As Ordered ONE (14:17)
[2017-08-14] MEDS ORDERED: fentaNYL 100 MCG/2 ML INJECTION (J3010) As Ordered ONE (14:26)
[2017-08-14] MEDS ORDERED: MIDAZOLAM INJ 2 MG/2 ML VIAL (J2250) As Ordered ONE (14:26)
--- NOTE | 2017-08-14 15:31 | ROOR ---
Patient Name: Arcelia Duron Procedure Date: 08/14/2017 2:41 PM Date of : 1985 Age: 31 Room: Main OR Gender: Female Note Status: Finalized Procedure: ERCP + Papillotomy + Balloon Sweep Indications: Abdominal pain of suspected biliary origin, Biliary dilation on Ultrasound, Evaluation and possible treatment of bile duct stone(s), Elevated aspartate transaminase (AST), Elevated alanine transaminase (ALT), Elevated bilirubin, Elevated alkaline phosphatase, Acute recurrent pancreatitis, For therapy of acute recurrent pancreatitis Providers: Tmi Molina MD Referring MD: Catalina Pickard M.d. Requesting Provider: Medicines: General Anesthesia Complications: No immediate complications. Procedure: Pre-Anesthesia Assessment: - The heart rate, respiratory rate, oxygen saturations, blood pressure, adequacy of pulmonary ventilation, and response to care were monitored throughout the procedure. The Duodenoscope was introduced through the mouth, and advanced to the duodenum and used to inject contrast into the bile duct. The ERCP was accomplished without difficulty. The patient tolerated the procedure well. Findings: The scope was passed through the upper GI tract without discovering UGI findings. The major papilla was bulging. A short 0.035 inch Soft Jagwire was passed into the biliary tree. The short-nosed traction sphincterotome was passed over the guidewire and the bile duct was then deeply cannulated. Contrast was injected. I personally interpreted the bile duct images. Ductal flow of contrast was adequate. Image quality was adequate. Contrast extended to the entire biliary tree. The biliary pancreatic junction contained filling defect(s). Biliary sphincterotomy was made with a monofilament traction (standard) sphincterotome using ERBE electrocautery. There was no post-sphincterotomy bleeding. The biliary tree was swept with a 12 mm balloon starting at the bifurcation. Sludge was swept from the duct. All stones were removed. Impression: - The major papilla appeared to be bulging. - A filling defect was seen on the cholangiogram. - Choledocholithiasis was found. Complete removal was accomplished by biliary sphincterotomy and balloon extraction. - A biliary sphincterotomy was performed. - The biliary tree was swept. - The examination was otherwise normal. Recommendation: - Avoid aspirin and nonsteroidal anti-inflammatory medicines for 2 weeks. - Advance diet as tolerated. - Return patient to hospital [facility] for ongoing care. - Watch for pancreatitis, bleeding, perforation, and cholangitis. - The findings and recommendations were discussed with the patient's family. Tim Molina MD Tim Molina MD 08/14/2017 3:30:18 PM This report has been signed electronically. Number of Addenda: 0 Note Initiated On: 08/14/2017 2:41 PM Estimated Blood Loss: Estimated blood loss: none.
--- NOTE | 2017-08-14 15:39 | REP ---
ERCP: 20 views. History: Acute gallstone pancreatitis. 56 seconds of fluoroscopy time is reported. Findings: A sequence of 20 last image hold fluoroscopic spot radiographs of the right upper quadrant document endoscopic cannulation guidewire insertion and contrast injection in the common bile duct. Balloon catheter manipulation is documented and no filling defect is seen in the common bile duct on final images. Signed by Fidel Strickland MD 08/14/2017 05:11 P
[2017-08-14] MEDS ORDERED: fentaNYL 100 MCG/2 ML INJECTION (J3010) IV PRN (15:45)
[2017-08-14] MEDS ORDERED: METOCLOPRAMIDE INJ 10MG/2ML VIAL (J2765) IV PRN (15:45)
[2017-08-14] MEDS ORDERED: LR 1,000 ML IV SCH (15:45)
[2017-08-15 04:00] VITALS: BP 143/77
[2017-08-15] MEDS ORDERED: ACETAMINOPHEN TAB 650MG DOSE (2X325MG) PO ONE (04:30)
[2017-08-15] MEDS: NS 1,000 ML IV SCH ×3 (05:00→09:29)
[2017-08-15 05:50] LABS: BASO % 0.3 % (0.0-1.0); EOS % 0.3 % (0.0-3.0); LARGE UNSTAINED CELL # 0.1 K/mm3 (0.0-0.4); LARGE UNSTAINED CELL % 1.4 % (0.0-4.0); LYMPH # 0.8 K/mm3 (1.5-4.5); LYMPH % 12.7 % (24.0-44.0); MEAN CORPUSCULAR HEMOGLOBIN 28.7 pg (27.0-33.0); MEAN CORPUSCULAR HGB CONC 32.9 g/dl (32.0-36.5); MEAN CORPUSCULAR VOLUME 87.4 fl (80.0-96.0); MONO # 0.2 K/mm3 (0.0-0.8); MONO % 3.4 % (0.0-5.0); NEUTROPHILS # 5.1 K/mm3 (1.8-7.7); PLATELET COUNT, AUTOMATED 231 k/mm3 (150-450); RED CELL DISTRIBUTION WIDTH 14.1 % (11.5-14.5); WHITE BLOOD COUNT 6.2 K/mm3 (4.0-10.0)
[2017-08-15 06:10] LABS: ALBUMIN/GLOBULIN RATIO 1.07 (1.00-1.93); ALKALINE PHOSPHATASE 309 U/L (45-117); ALT/SGPT 202 U/L (12-78); AMYLASE 861 U/L (25-115); ANION GAP 13 MEQ/L (8-16); AST/SGOT 140 U/L (15-37); BILIRUBIN,TOTAL 2.7 MG/DL (0.2-1.0); BLOOD UREA NITROGEN 14 MG/DL (7-18); CALCIUM LEVEL 8.3 MG/DL (8.5-10.1); CARBON DIOXIDE LEVEL 19 MEQ/L (21-32); CHLORIDE LEVEL 112 MEQ/L (98-107); GLOMERULAR FILTRATION RATE > 60.0 (>60); GLUCOSE, FASTING 69 MG/DL (70-105); POTASSIUM SERUM 3.8 MEQ/L (3.5-5.1); TRIGLYCERIDES LEVEL 77 MG/DL (<150)
[2017-08-15 06:50] LABS: SODIUM LEVEL 144 MEQ/L (136-145); TOTAL PROTEIN 5.8 GM/DL (6.4-8.2)
[2017-08-15] MEDS: PANTOPRAZOLE 40MG INJ (PROTONIX) (C9113) IV SCH (08:48)
--- NOTE | 2017-08-16 22:06 | DSES ---
DATE OF ADMISSION: 08/14/2017 DATE OF DISCHARGE: 08/15/2017 DISCHARGE DIAGNOSIS: Choledocholithiasis. SECONDARY DIAGNOSES: 1. Gallstone pancreatitis. 2. Abdominal pain. HOSPITAL COURSE: The patient is a 31-year-old female with a history of gallstone pancreatitis who had laparoscopic cholecystectomy done two weeks ago after an episode of gallstone pancreatitis. The patient had the procedure completed by Dr. Harrington. She presented once again with similar symptoms to her previous presentation, right upper quadrant abdominal pain. The patient had no fevers or chills. She had actually been referred to Dr. Molina for retained common bile duct stone. She was found to have a significantly elevated lipase. Dr. Molina was able to see the patient in consultation and take her for endoscopic retrograde cholangiopancreatography (ERCP) in the afternoon. The patient tolerated the procedure quite well and did have complete resolution of her symptoms. SUBJECTIVE: At this time, the patient tells me that her pain is completely gone. She denies chest pain, shortness of breath, fevers, chills, nausea, vomiting or diarrhea. OBJECTIVE: VITAL SIGNS: Temperature 99.6, pulse 72, respiratory rate 18, blood pressure 143/77, oxygen saturation 97% on room air. GENERAL: She is a very pleasant, obese female lying flat in bed. She does not appear to be any acute distress. HEENT: Cranial nerves II through XII are grossly intact. She has moist mucous membranes. No elevation of central venous pressure (CVP). CARDIOVASCULAR: S1, S2. Regular. RESPIRATORY: Clear. ABDOMEN: Obese. There is no tenderness even to deep palpation. Bowel sounds are present. She has not had any bowel movements. EXTREMITIES: There is no clubbing, cyanosis or edema. LABORATORY DATA: WBC 6.2, hemoglobin 11.6, hematocrit 35.3, platelet count 231. Chemistry panel: Sodium 144, potassium 3.8, chloride 112, bicarbonate 19, BUN 14, creatinine 0.4. Total bilirubin is 2.7 down from 4.8. AST 140 down from 151. ALT 202 down from 238. Alkaline phosphatase 309 down from 342. Amylase is 861 from 2261. Lipase 11,062 down from 37,315. INR was 0.8. MICROBIOLOGY: No microbiology. IMAGING: No new imaging. ASSESSMENT AND PLAN: This is a 31-year-old female with choledocholithiasis status post endoscopic retrograde cholangiopancreatography (ERCP) with complete removal and sphincterotomy. Choledocholithiasis status post ERCP with sphincterotomy with removal of stone. The patient's symptoms have resolved. She is doing quite well. All her laboratory studies are trending back towards baseline. I have spoken with Dr. Molina. She is tolerating a diet. She has not had any fevers. No evidence of perforation or infection. He is agreeable for her discharge home today. DISPOSITION: The patient is being discharge home. Her clinical status has resolved. She is at her functional baseline. She is to followup with her primary care provider (PCP) in seven days and gastroenterology (GI) within two weeks. Her activity is as tolerated. Her diet is as prior to admission. MEDICATIONS AT DISCHARGE: Microgestin iron 1/20 one tablet daily Greater than 30 minutes spent organizing disposition and coordinating care.
--- NOTE | 2017-08-24 23:53 | CR ---
DATE OF CONSULTATION: 08/14/2017 This is a 31-year-old white female who we had seen in the office approximately 1 week prior to this admission for a history of epigastric pain. She is status post cholecystectomy, approximately [address] Harrington. She presented with epigastric pain, abnormal liver functions and now a second episode of gallstone pancreatitis. She was seen in the office with the recommendation being made to have an endoscopic retrograde cholangiopancreatography (ERCP) with papillotomy to clear the common bile duct of stones. The patient refused at the time and wanted a magnetic resonance cholangiopancreatography (MRCP) and further testing since her pains had disappeared until this morning. The patient now presents with epigastric pain again with nausea and vomiting. She has no fevers, night sweats or shaking chills and no melena, hematochezia or bright red blood per rectum. PAST MEDICAL HISTORY: 1. section. 2. Previous history of gallstone pancreatitis. 3. Cholecystectomy. PAST SURGICAL HISTORY As above. ALLERGIES: No known declared allergies. SOCIAL HISTORY: Cigarettes, alcohol, drugs - negative. FAMILY HISTORY: Noncontributory. ANALYSIS: Recurrent gallstone pancreatitis secondary to probable common bile duct stones or choledocholithiasis. PLAN: Plan will be to now set the patient up for an immediate ERCP this afternoon with papillotomy and balloon sweep for the common bile duct due to probable stones. Laboratory studies showed a normal white count, hemoglobin and hematocrit were essentially normal. Liver functions, however, are elevated with a bilirubin of 4.8, with transaminases of 151, 238 and 342. The patient's lipase on admission now is 37,350 and amylase 2261. PLAN: ERCP with papillotomy, balloon sweep. Informed consent has been given to the patient for the risks of pancreatitis, bleeding complications, perforation and infection but not limited to .
== END 2017-08-15 12:19 | disposition home or self-care (01) | DRG 261 ==
LOC: M ED 10:17 → M ED INP 12:19 → M PCU 16:08
PROVIDERS: ADMIT General Practice; ATTEND Internal Medicine
PROC: 0FC44ZZ Extirpation of Matter from Gallbladder, Percutaneous Endoscopic Approach (ICD-10-PCS; principal; 2017-08-14 10:24)
DX: K80.51 Calculus of bile duct without cholangitis or cholecystitis with obstruction (principal); K85.90 Acute pancreatitis without necrosis or infection, unspecified

== ENCOUNTER 2019-06-24 11:20 | Emergency (ER) | payer OTHER ==
[~2019-06-24] VITALS: Ht 165.1 cm; Wt 90.9 kg
[~2019-06-24 11:20] MED LIST changes: +MICR1TAB16 PO
[2019-06-24] MEDS ORDERED: LARI1TAB3 (11:26)
[2019-06-24 12:00] LABS: BASO # 0.1 10^3/uL (0.0-0.2); BASO % 0.5 % (0.0-1.0); EOS # 0.1 10^3/uL (0.0-0.50); HEMATOCRIT 39.5 % (36.0-47.0); HEMOGLOBIN 12.6 g/dl (12.0-15.5); LYMPH # 2.1 10^3/uL (1.5-4.5); LYMPH % 20.3 % (24.0-44.0); MEAN CORPUSCULAR HEMOGLOBIN 27.8 pg (27.0-33.0); MEAN CORPUSCULAR HGB CONC 31.9 g/dl (32.0-36.5); MONO # 0.4 10^3/uL (0.0-0.8); MONO % 4.1 % (0.0-5.0); NEUTROPHILS # 7.6 10^3/uL (1.8-7.7); NEUTROPHILS % 73.4 % (36.0-66.0); PLATELET COUNT, AUTOMATED 358 10^3/uL (150-450); RED BLOOD COUNT 4.54 10^6/uL (4.00-5.40); WHITE BLOOD COUNT 10.3 10^3/uL (4.0-10.0)
[2019-06-24] MEDS ORDERED: NS 1,000 ML IV ONE (12:15)
[2019-06-24] MEDS ORDERED: ONDANSETRON 4MG/2ML VIAL (J2405) IV ONE (12:15)
[2019-06-24] MEDS ORDERED: KETOROLAC 30 MG/ML VIAL (J1885) IV ONE (12:15)
[2019-06-24 12:35] LABS: ALBUMIN 3.9 GM/DL (3.2-5.2); ALT/SGPT 27 U/L (12-78); AMYLASE 58 U/L (25-115); BILIRUBIN,DIRECT 0.1 MG/DL (0.0-0.2); BILIRUBIN,TOTAL 0.5 MG/DL (0.2-1.0); BLOOD UREA NITROGEN 14 MG/DL (7-18); CALCIUM LEVEL 9.6 MG/DL (8.5-10.1); CARBON DIOXIDE LEVEL 30 MEQ/L (21-32); CHLORIDE LEVEL 104 MEQ/L (98-107); CK-MB VALUE MASS 2.6 NG/ML (<3.6); CPK CREATINE PHOSPHOKINASE 176 U/L (26-192); CREATININE FOR GFR 0.59 MG/DL (0.55-1.30); GLOMERULAR FILTRATION RATE > 60.0 (>60); GLUCOSE, FASTING 84 MG/DL (70-100); LIPASE 122 U/L (73-393); MB/CK RELATIVE INDEX 1.48 (< OR =4); POTASSIUM SERUM 3.9 MEQ/L (3.5-5.1); SODIUM LEVEL 142 MEQ/L (136-145); TOTAL PROTEIN 7.5 GM/DL (6.4-8.2); TROPONIN I < 0.02 NG/ML (< 0.10)
[2019-06-24] MEDS ORDERED: ISOVUE-370 76% 100ML VIAL (Q9967) As Ordered ONE (12:37)
--- NOTE | 2019-06-24 13:17 | REP ---
Clinical: Epigastric pain. History pancreatitis. Technique: Axial contrast enhanced images from the lung bases to the pubic symphysis with coronal and sagittal re-formations using 100 ml Isovue 370 intravenous contrast material. Comparison: Report dated 06/17/2017 Findings: Lung bases are clear. Visualized heart and pericardium normal. Small hypodensities within the right hepatic lobe are again noted and may represent cysts. Spleen, pancreas, bilateral adrenal glands and kidneys are essentially normal. 2 cm right renal hypodensity likely represents cyst. Evidence of prior cholecystectomy. The enteric system is without obstruction or acute inflammatory process. Normal terminal ileum and appendix identified in the right lower quadrant. Pelvis demonstrates normal bladder and age-appropriate uterus/adnexa. No ascites. No free air. No adenopathy. Small fat containing periumbilical hernia noted. Musculoskeletal structures are intact. Impression: 1. No acute abdominopelvic pathology appreciated. 2. Hepatic and right renal hypodensities likely representing cysts similar to prior examination. Electronically Signed by Juan Chau MD 06/24/2019 01:09 P
[2019-06-24] MEDS ORDERED: GI COCKTAIL 50ML BTL(HYOSCYAMINE/MAALOX/LIDOCAINE VISCOUS)(1:3:1) PO ONE (14:00)
[2019-06-24] MEDS ORDERED: CARA1TAB6 PO (14:51)
[2019-06-24] MEDS ORDERED: OMEP40CA97 PO (14:51)
[2019-06-24 14:54] VITALS: BP 139/75
--- NOTE | 2019-06-24 22:29 | ECGEPIP ---
[facility] - ED Test Date: 2019-06-24 Pat Name: IVONE MENENDEZ Department: Room: - Gender: Female Egyptologist: ROB : 1985 Requested By: TIM aGlaviz PA-C Order Number: [id number] Reading MD: Trey Rhodes Measurements Intervals [place] Rate: 74 P: 23 NV: 148 QRS: 23 QRSD: 87 T: 2 QT: 361 QTc: 402 Interpretive Statements SINUS RHYTHM NSTTW ABNORMALITIES BASELINE ARTIFACT AFFECTS INTERPRETATION SIMILAR TO 06/17/17 Electronically Signed on 06-24-2019 22:29:31 EDT by Trey Rhodes
== END 2019-06-24 15:08 | disposition home or self-care (01) ==
LOC: M ED 11:20
DX: K29.00 Acute gastritis without bleeding (principal); I10 Essential (primary) hypertension; Z87.19 Personal history of other diseases of the digestive system; Z87.440 Personal history of urinary (tract) infections; Z79.899 Other long term (current) drug therapy
CPT/HCPCS: 74177; 80048; 80076; 81001; 82150; 82550; 82553; 83690; 84702; 85025; 93005; 96361; 96374; 96375; 99284; J1885; J2405; Q9967

== ENCOUNTER → 2019-07-05 | Outpatient (REF) | payer OTHER ==
[~2019-07-05] MED LIST changes: +CARA1TAB6 PO; +LARI1TAB3; +OMEP40CA2 PO
== END ==
LOC: M SFHCPLAZ 15:05
PROVIDERS: ATTEND Student in an Organized Health Care Education/Training Program
DX: K29.00 Acute gastritis without bleeding (principal)

== ENCOUNTER → 2019-08-12 | Outpatient (REF) | payer OTHER | LOC: M SFHCPLAZ 12:04 | PROVIDERS: ATTEND Student in an Organized Health Care Education/Training Program | DX: K29.00 Acute gastritis without bleeding (principal) ==